=== PATIENT | male | born 1965 | race Caucasian/White ===

== ENCOUNTER 2018-03-06 00:22 | Emergency (ER) | payer SELFPAY ==
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
[2018-03-06 01:06] LABS: ABSOLUTE BASOPHILS # (AUTO) 0.1 10^3/uL (0.0-0.2); ABSOLUTE EOSINOPHILS # (AUTO) 0.1 10^3/uL (0.0-0.6); ABSOLUTE MONOCYTES (AUTO) 0.6 10^3/uL (0.1-1.4); ABSOLUTE NEUT (AUTO) 3.9 10^3/uL (1.7-8.2); BASOPHILS % (AUTO) 0.9 % (0-2); EOSINOPHILS % (AUTO) 2.2 % (0-6); HEMATOCRIT 47.4 % (37.9-51.0); HEMOGLOBIN 16.3 g/dL (13.5-17.0); LYMPHOCYTES % (AUTO) 30.1 % (13-45); MEAN CORPUSCULAR HEMOGLOBIN 33.7 pg (27.0-33.4); MEAN CORPUSCULAR HGB CONC 34.3 g/dL (32.0-36.0); MEAN CORPUSCULAR VOLUME 98 fl (80-97); MONOCYTES % (AUTO) 9.3 % (3-13); PLATELET COUNT 173 10^3/uL (150-450); RED BLOOD COUNT 4.83 10^6/uL (4.35-5.55); SEGMENTED NEUTROPHILS % (AUTO) 57.5 % (42-78); TOTAL CELLS COUNTED % (AUTO) 100 %; WHITE BLOOD COUNT 6.8 10^3/uL (4.0-10.5)
[2018-03-06 01:24] LABS: ALANINE AMINOTRANSFERASE 30 U/L (21-72); ALBUMIN 4.1 g/dL (3.5-5.0); ALKALINE PHOSPHATASE 77 U/L (38-126); ANION GAP 5 (5-19); ASPARTATE AMINO TRANSFERASE 19 U/L (17-59); BILIRUBIN,DIRECT 0.1 mg/dL (0.0-0.4); BILIRUBIN,TOTAL 0.4 mg/dL (0.2-1.3); BLOOD UREA NITROGEN 19 mg/dL (7-20); CARBON DIOXIDE 27 mmol/L (22-30); CHLORIDE 104 mmol/L (98-107); GLUCOSE 114 mg/dL (75-110); POTASSIUM 3.9 mmol/L (3.6-5.0); SODIUM 135.9 mmol/L (137-145); TOTAL PROTEIN 6.4 g/dL (6.3-8.2)
[2018-03-06 01:25] LABS: ACETAMINOPHEN < 10 ug/mL (10-30); ALCOHOL < 10 mg/dL (NONE DETECTED); SALICYLATE < 1.0 mg/dL (2.0-20.0)
[2018-03-06 03:47] LABS: APPEARANCE,URINE CLEAR; BILIRUBIN,URINE NEGATIVE (NEGATIVE); COLOR,URINE YELLOW; GLUCOSE, URINE NEGATIVE (NEGATIVE); KETONES,URINE NEGATIVE (NEGATIVE); LEUKOCYTE ESTERASE,URINE NEGATIVE (NEGATIVE); NITRITE,URINE NEGATIVE (NEGATIVE); PROTEIN,URINE NEGATIVE (NEGATIVE); URINE SPECIFIC GRAVITY 1.019; UROBILINOGEN,URINE NEGATIVE mg/dL (<2.0)
[2018-03-06] MEDS ORDERED: RINGERS SOLUTION,LACTATED 1,000 ML IV ONE (03:59)
[2018-03-06] MEDS ORDERED: NALOXONE HCL INJ/PF 0.4 MG/1 ML SDV IV ONE (04:00)
[2018-03-06 04:03] LABS: URINE AMPHETAMINES SCREEN NEGATIVE; URINE BARBITURATES SCREEN NEGATIVE; URINE BENZODIAZEPINES SCREEN NEGATIVE; URINE COCAINE SCREEN NEGATIVE; URINE MARIJUANA (THC) SCREEN NEGATIVE; URINE METHADONE SCREEN NEGATIVE; URINE PHENCYCLIDINE SCREEN NEGATIVE
[2018-03-06] MEDS ORDERED: NALOXONE HCL INJ/PF 0.4 MG/1 ML SDV IV PRN (04:16)
--- NOTE | 2018-03-06 08:03 | EKG REPORT ---
SEVERITY:- OTHERWISE NORMAL ECG - SINUS RHYTHM LEFT AXIS DEVIATION : Confirmed by: Dorothy Orantes MD 06-Mar-2018 08:03:12
--- NOTE | 2018-03-06 09:45 | ER Document Report ---
Doctor's Note Notes: 03/06/18 09:40 Rounds: Chart reviewed and patient snoring, soundly asleep. Still, patient is easily awakened by nudging him and calling his name. Discussed case with mental health provider on duty. Awakened patient easily and question his motives and taking the pills. He says he just wanted to get some sleep and does not intend to kill himself. Patient with a history of depression, thyroid condition, positive HIV. Reportedly took an overdose of uncertain quantity of clonidine, Remeron, and oxycodone. Not sure if patient intended to kill himself. Vital signs are all essentially normal with systolics in the 103-104 area. Hemoglobin is 16.3. Urine drug screen is positive for opiates. Patient's creatinine was 1.62. He was given a liter of saline IV earlier. Patient appears to be medically stable for transfer or discharge. Noman Dorman MD
[2018-03-06 10:27] VITALS: BP 104/76
== END 2018-03-06 10:40 | disposition home or self-care (01) ==
LOC: ER 00:22
DX: T42.4X2A Poisoning by benzodiazepines, intentional self-harm, initial encounter (principal); T43.022A Poisoning by tetracyclic antidepressants, intentional self-harm, initial encounter; T40.2X2A Poisoning by other opioids, intentional self-harm, initial encounter; R07.9 Chest pain, unspecified; Y92.481 Parking lot as the place of occurrence of the external cause; B20 Human immunodeficiency virus [HIV] disease
CPT/HCPCS: 93005; 96376; 99285; 96361; 51701; 96374; 36415; 80307 ×4; 85025; 80053; 81001; 93010; J2310; J7120